=== PATIENT | female | born 1995 | race Caucasian/White ===

== ENCOUNTER → 2018-10-06 | Outpatient (CLI) | payer OTHER ==
[~2018-10-06] MED LIST: GADOBUTROL 7.5 MMOL/7.5 ML VIAL ONE; LIDOCAINE-MPF 1%, 5ML ONE; ROPivacaine/PF 0.2%, 10 ML ONE; SODIUM BICARBONATE 4.0%, 5ML ONE
== END | disposition home or self-care (01) ==
LOC: RAD 08:41
PROVIDERS: ATTEND Physician Assistant
DX: S63.512D Sprain of carpal joint of left wrist, subsequent encounter (principal); M65.88 Other synovitis and tenosynovitis, other site; X58.XXXD Exposure to other specified factors, subsequent encounter
CPT/HCPCS: 73115; 73222; A9585; J2795